=== PATIENT | female | born 1955 | race Caucasian/White ===

== ENCOUNTER 2018-07-25 13:33 | Inpatient (IN) ==
[2018-07-25] MEDS ORDERED: PANTOprazole 40 MG TAB PO STA (14:12)
[2018-07-25] MEDS ORDERED: fentaNYL citrate 100 MCG/2 ML VIAL IV STA (14:12)
--- NOTE | 2018-07-25 14:33 | XRay Report ---
SINGLE VIEW CHEST CLINICAL HISTORY: Atypical chest pain. FINDINGS: An AP, portable, upright chest radiograph is compared to study dated 05/26/2015. The examina tion is degraded by portable technique and patient rotation. The heart is top normal for projection. The pulmonary vasculature is noncongested. The mediastinal contour is within normal limits. There is mild bibasilar atelectasis. The lungs and pleural spaces are otherwise clear. No pneumothorax is see n. The skeletal structures are osteopenic. The bony thorax is grossly intact. IMPRESSION: No acute cardiopulmonary abnormality. Electronically signed by: Aj Bunch M.D. 07/25/2018 2:32 PM
[2018-07-25 14:58] LABS: Basophils # (auto) 0.04 K/uL (0-0.2); Basophils % (auto) 0.4 %; Eosinophils # (auto) 0.07 K/uL (0-0.5); Eosinophils % (auto) 0.7 %; Immature Granulocytes # (auto) 0.02 K/uL (0.00-0.02); Immature Granulocytes % (auto) 0.2 %; Lymphocytes # (auto) 1.42 K/uL (1.2-3.4); Lymphocytes % (auto) 14.9 %; Mean Corpuscular Hgb Conc 33.3 g/dL (32-36); Mean Corpuscular Volume 88.8 fL (80-100); Mean Platelet Volume 10.2 fL (7.4-10.4); Monocytes % (auto) 3.1 %; Neutrophils % (auto) 80.7 %; Platelet Count 231 K/uL (130-400); RDW Coefficient of Variation 13.2 % (11.5-14.5); RDW Standard Deviation 43.4 fL (36.4-46.3); Red Blood Count 4.39 M/uL (4.2-5.4); White Blood Count 9.55 K/uL (4.8-10.8)
[2018-07-25 15:16] LABS: Albumin Level 3.7 gm/dl (3.4-5.0); BUN Creatinine Ratio 36.3 (10-20); Blood Urea Nitrogen 20 mg/dl (7-18); Calcium 9.1 mg/dl (8.5-10.1); Carbon Dioxide 26 mmol/L (21-32); Chloride 108 mmol/L (98-107); Creatinine Clr Calc Pharmacy 116.5 ml/min; Est GFR (African American) 114.2; Est GFR (Non-African American) 98.5; Glucose 108 mg/dl (70-99); Magnesium 1.9 mg/dl (1.8-2.4); Potassium 4.2 mmol/L (3.5-5.1); Sodium 137 mmol/L (136-145)
[2018-07-25 15:22] LABS: Appearance Urine Clear (Clear); Bilirubin Urine Negative (Negative); Blood Urine Negative (Negative); Color Urine Yellow; Glucose Urine UA Negative (Negative); Ketones Urine Negative (Negative); Leukocyte Esterase Urine Negative (Negative); Nitrite Urine Negative (Negative); Protein Urine Negative (Negative); Specific Gravity Urine 1.024 (1.000-1.030); Urobilinogen Urine Negative (Negative)
[2018-07-25 15:46] LABS: Alanine Aminotransferase 23 U/L (12-78); Alkaline Phosphatase 84 U/L (45-117); Aspartate Aminotransferase 18 U/L (15-37); Bilirubin,Total 0.5 mg/dl (0.2-1); Globulin 3.8 gm/dl (2.5-4.0); Total Protein 7.5 gm/dl (6.4-8.2); Troponin I < 0.015 ng/ml (0-0.045)
--- NOTE | 2018-07-25 16:35 | Ultrasound Report ---
ULTRASOUND RIGHT UPPER QUADRANT ABDOMEN CLINICAL HISTORY: Epigastric abdominal pain. COMPARISON STUDY: No priors. TECHNIQUE: Real-time, grayscale, and color flow sonography of the right upper quadrant of the abdomen was performed. Images are reviewed in the transverse and longitudinal planes. FINDINGS: Liver: The liver is normal in size and echotexture. There is no intrahepatic biliary ductal dilatatio n. The main portal vein is patent. Gallbladder: There is minimal biliary sludge. The gallbladder is otherwise normal in appearance. No s hadowing gallstones are identified. There is no gallbladder wall thickening or pericholecystic fluid. A sonographic Wahl's sign is reportedly absent. The common bile duct measures up to 0.4 cm in diam eter. Pancreas: Visualized portions of the pancreatic head and body are normal in appearance. The splenic v ein is patent. Right kidney: Survey images of the right kidney demonstrate normal size and echotexture. There is no hydronephrosis. Ascites: None. IMPRESSION: 1. No acute sonographic abnormality is identified in the right upper quadrant. 2. No shadowing gallstones are identified. Minimal biliary sludge is noted. Electronically signed by: Aj Bnuch M.D. 07/25/2018 4:34 PM
[2018-07-25] MEDS ORDERED: SODIUM CHLORIDE 0.9% 1000ML 1,000 ML IV ONE (16:46)
[2018-07-25 17:26] LABS: Chol HDL Ratio 3; Cholesterol 183 mg/dl (0-200); HDL Cholesterol 69 mg/dl; LDL Cholesterol Calculated 101 mg/dl; Triglycerides 63 mg/dl (0-150); VLDL Cholesterol 13 mg/dl
[2018-07-25] MEDS ORDERED: POLYETHYLENE (MIRALAX) 17 GM PACK PO PRN (17:34)
[2018-07-25] MEDS ORDERED: ONDANSETRON INJ 2 MG/ML 2 ML VIAL IV PRN (17:34)
[2018-07-25] MEDS ORDERED: ACETAMINOPHEN 325 MG TAB PO PRN (17:34)
--- NOTE | 2018-07-25 17:47 | History & Physical Report ---
Date of Service July 25, 2018 Assessment & Plan (1) Pancreatitis: Pres[place] [address] -Unclear etiology. No hx of alcoholism, LFTs- normal, US- No gall stones, minimal biliary sludge -CT scan abd/pelvis was ordered by ER physician -Triglycerides - pending -NPO -IV Fluids- LR at 200 cc/hour -Pain mx- IV Morphine PRN -Work up- CT scan abd/pelvis- Follow up Present on Admission?: Yes (2) Hypertension: Stable -Continue with lisinopril 5 mg, Metoprolol 25 mg PO BID -Monitor Present on Admission?: Yes (3) GERD (gastroesophageal reflux disease): -Pepcid as protonix back ordered Present on Admission?: Yes (4) DVT prophylaxis: -SCDS/TEDS -Mobilization protocol Present on Admission?: Yes History of Present Illness Chief Complaint: Epigastric pain since today AM Primary Care Provider: Hugh Thibodeaux MD Patient is a 63-year-old female with past medical history of hypertension, GERD, comes to ED with complaint of epigastric pain since today morning. Patient's last hospitalization was in 2015 for chest pain. Since then she has not been hospitalized. Patient was at her baseline level of functioning until today morning when she had sudden onset epigastric pain radiating all across the upper part of her a bdomen, severity 7-8, dull aching. No aggravating factors. Relieved after Fentanyl 50 mcg IV, IV NS in ED. No associated nausea, vomiting, diarrhea, constipation, fever, chills. No history of alcohol abuse. Prior history of pancreatitis 20 years ago with unknown etiology. In ED, currently her pain level is 3/10. Afebrile. Vitals stable. Labs show a lipase 43,000, no other significant abnormality, triglyceridesnormal, ultrasound shows no gallstones, minimal biliary sludge, LFTsnormal. CT scan abdomen has been ordered by ED physician, Pending results. We will admit the patient for acute pancreatitis for further management. Allergies Allergy/AdvReac Type Severity Reaction Status Date / Time naproxen AdvReac Intermediate POSSIBLE Verified 07/25/18 15:00 PANCREATITIS Home Medications Home Medications Medication Instructions Recorded Confirmed Type calcium carbonate 500 - 1,000 mg PO DAILY PRN 07/25/18 07/25/18 History cholecalciferol (vitamin D3) 2,000 unit PO HS 07/25/18 07/25/18 History [Vitamin D3] lisinopril 5 mg PO HS 07/25/18 07/25/18 History metoprolol tartrate 50 mg PO BID 07/25/18 07/25/18 History ranitidine HCl 75 mg PO DAILY PRN 07/25/18 07/25/18 History Past Med/Surg History Medical History Pancreatitis (Acute) Hypertension (Chronic) GERD (gastroesophageal reflux disease) (Chronic) Family History Other Family history non-contributory Social History marital status: Current Living Situation: Spouse current occupational status: employed Feels Safe at Home: Yes Smoking Status: Never smoker Review of Systems All systems reviewed & are unremarkable except as noted in HPI & below Physical Exam Vital Signs (Past 24 Hours): Last Vital Signs Temp 36.9 C 07/25/18 13:35 Pulse 60 07/25/18 17:00 Resp 16 07/25/18 17:00 BP 143/78 H 07/25/18 17:00 Pulse Ox 98 07/25/18 17:00 Physical Exam: GENERAL- AAOX3, No acute distress HEAD- Atraumatic, Normocephalic EYES- No pallor, icterus, redness, discharge. Pupils are equal, round, reactive to light and accomodation. EARS- Normal pinna, no discharge, tenderness noted NOSE- No nasal discharge noted NECK- Supple, no JVD LUNGS- Air entry bilaterally equal. No rales, rhonchi, crackles, wheezes heard. HEART- Regular rate and rhythm. No murmurs ABDOMEN- Soft, Epigastric tenderness, non distended, Bowel sounds heard. EXTREMITIES- Good peripheral pulses, no edema NEUROMUSCULAR- AAOX3, Grossly no focal deficits SKIN- No rashes Results & Data Laboratory Results Short CBC 07/25/18 Range/Units 14:45 WBC 9.55 (4.8-10.8) K/uL Hgb 13.0 (12.0-16.0) g/dL Hct 39.0 (37-47) % Plt Count 231 (130-400) K/uL BMP 07/25/18 14:45 Sodium 137 Potassium 4.2 Chloride 108 H Carbon Dioxide 26 BUN 20 H Creatinine 0.56 L Glucose 108 H Calcium 9.1 Cardiac Enzymes 07/25/18 Range/Units 14:45 Troponin I < 0.015 (0-0.045) ng/ml Liver Function 07/25/18 Range/Units 14:45 Total Bilirubin 0.5 (0.2-1) mg/dl AST 18 (15-37) U/L ALT 23 (12-78) U/L Alkaline Phosphatase 84 (45-117) U/L Albumin 3.7 (3.4-5.0) gm/dl Urine 07/25/18 Range/Units 14:45 Urine Color Yellow Urine Appearance Clear (Clear) Urine pH 5.0 (4.5-7.5) Ur Specific Stover 1.024 (1.000-1.030) Urine Protein Negative (Negative) Urine Glucose (UA) Negative (Negative) Code Status & VTE Plan Code Status FULL CODE VTE Prophylaxis Plan VTE Prophylaxis will be ordered: Yes (1) Pancreatitis Acute pancreatitis complication: no infection or necrosis Chronicity: acute Pancreatitis type: unspecified pancreatitis type Qualified Code(s): K85.90 - Acute pancreatitis without necrosis or infection, unspecified
[2018-07-25] MEDS ORDERED: MoRPHine SULFATE 2 MG/ML CARP IV PRN (18:07)
[2018-07-25] MEDS ORDERED: IOVERSOL 100ml IV PRN (18:41)
--- NOTE | 2018-07-25 19:08 | CT Scan Report ---
CT SCAN OF THE ABDOMEN AND PELVIS WITH IV CONTRAST CLINICAL HISTORY: Epigastric abdominal pain. Clinical concern for pancreatitis. COMPARISON STUDY: Abdominal ultrasound dated 07/25/2018. TECHNIQUE: Following the IV administration of 93 cc of Optiray 320, CT scan of the abdomen and pelvi s is performed from the lung bases to the proximal femora. Images are reviewed in the axial, sagittal , and coronal planes. IV contrast was administered without complication. A dose lowering technique wa s utilized adhering to the principles of ALARA. CT DOSE: 600.63 mGy.cm FINDINGS: Lung bases: The heart is normal in size and without pericardial effusion. The lung bases are clear no ting dependent atelectasis. Liver: The contrast-enhanced liver is normal in size, contour, and attenuation. There is no intrahepa tic biliary ductal dilatation. The hepatic veins and portal veins are patent. Gallbladder: Unremarkable. Spleen: Normal in size and attenuation. Pancreas: There is peripancreatic stranding and trace fluid. The appearance is consistent with acute pancreatitis. No organized peripancreatic fluid collection is identified. The splenic vein is patent. The gland enhances homogeneously, and the duct is normal in caliber. Adrenal glands: Unremarkable. Kidneys: The contrast enhanced kidneys are normal in size and without hydronephrosis. The kidneys enh ance symmetrically. There is duplication of the left renal collecting system. Abdominal vasculature: The abdominal aorta is normal in course and caliber. Bowel: There are scattered colonic diverticula without CT evidence of acute diverticulitis. Colonic f ecal retention is noted. No bowel obstruction is seen. The appendix is not identified. Peritoneum: There is no intraperitoneal free air or abdominal ascites. There is a small fat-containin g umbilical hernia. Lymphadenopathy: None. Pelvic viscera: The bladder, uterus, and adnexa are normal as visualized. Skeletal structures: The skeletal structures are osteopenic. Mild lumbosacral spondylosis is observed . There are minimal superior endplate compression deformities of T9 and T11. No lytic or blastic lesi ons are seen. IMPRESSION: 1. Findings are consistent with acute pancreatitis. 2. No peripancreatic fluid collection is identified and the pancreas enhances homogeneously. 3. Additional findings as above. Electronically signed by: Aj Bunch M.D. 07/25/2018 7:07 PM
[2018-07-25] MEDS: LACTATED RINGER'S 1,000 ML IV SCH (19:36)
--- NOTE | 2018-07-25 20:41 | Emergency Department Note ---
Entered by Vigrinie Harding acting as a scribe for History of Present Illness General Chief complaint: Abdominal Pain Stated complaint: UPPER ABDOMINAL/RIB PAIN Time Seen by Provider: 07/25/18 14:00 Source: patient History of Present Illness Onset (ago): day(s) (this morning) Location: abdomen Pain Consistency: + constant Maximum Pain Intensity: 7 Quality: + other (pressure, burning, squeezing) Relieved By: not by medication (Tums, Zantac) Associated symptoms: + denies other symptoms (urinary changes, bowel changes, bl oating, abdominal distension, bitter taste in mouth); no fever/chills The patient is a 63 year old female who presents to the Emergency Room with complaints of upper abdominal pain that started this morning upon waking. The patient reports that she has pain under her rib cage that radiates to her back and that she feels like she has gas from her rib cage down. She notes that she has a history of acid reflux so she took some Tums and Zantac but noticed no relief. She reports feeling slightly nauseous this morning but that it has since resolved with her medications. She describes the sensation as a burning, squeezing pressure around her abdomen. She denies any changes to her health recently and notes no changes to her diet, activity level, or medication re giment. She denies any associated urinary changes, fever, chills, bowel changes, bloating, abdominal distension, or a bitter taste in her mouth. She notes that she has a history of pancreatitis 18 years ago and is worried that she was having similar symptoms. She reports that she is unaware of what caused the pancreatitis. She notes that she visited her provider in [place] and was told to visit the Emergency Room to rule out cardiac issues. She denies any sick contacts. She notes that her father had stents placed when he was 62 years old. She states that she still has her gall bladder. Home Medications Home Medications Medication Instructions Recorded Confirmed Type calcium carbonate 500 - 1,000 mg PO DAILY PRN 07/25/18 07/25/18 History cholecalciferol (vitamin D3) 2,000 unit PO HS 07/25/18 07/25/18 History [Vitamin D3] lisinopril 5 mg PO HS 07/25/18 07/25/18 History metoprolol tartrate 50 mg PO BID 07/25/18 07/25/18 History ranitidine HCl 75 mg PO DAILY PRN 07/25/18 07/25/18 History Allergies Allergy/AdvReac Type Severity Reaction Status Date / Time naproxen AdvReac Intermediate POSSIBLE Verified 07/25/18 15:00 PANCREATITIS Past Med/Surg History Medical History Pancreatitis (Acute) Hypertension (Chronic) GERD (gastroesophageal reflux disease) (Chronic) Family History Other Family history non-contributory Social History Preferred Language: [place]ian Communication Ability: Effective Entry Level Administrative Assistant Required: No Beliefs That Will Affect Care: None marital status: Current Living Situation: Spouse current occupational status: employed Other Information That Helps Us Care for You: No Feels Safe at Home: Yes Safety Concerns: Feels Safe At This Time Smoking Status: Never smoker Hx Alcohol Use: No Hx Substance Use: No Review of Systems See HPI for pertinent positives & negatives. and A total of 10 systems reviewed and were otherwise negative Physical Exam Vital Signs Vital Signs - 24 hr 07/25/18 13:35 07/25/18 14:57 07/25/18 15:45 Temperature 36.9 C Temperature Source Oral Sepsis Recent Fever Within 48 Hours No Sepsis New/Unexplained Change in Mental Status No Sepsis Action Taken by Nursing No Action Required Pulse Rate 66 Pulse Rate [Left] 62 60 Pulse Rhythm [Left] Pulse Strength [Left] Respiratory Rate 20 18 18 Respiratory Effort / Characteristics Non-Labored Non-Labored Respiratory Depth Normal Normal Respiratory Pattern Blood Pressure 159/84 H Blood Pressure [Left Arm] 164/84 H 174/68 H Blood Pressure Mean 109 Blood Pressure Mean [Left Arm] 110 103 Blood Pressure Position [Left Arm] Pulse Oximetry 98 97 99 Oxygen Delivery Method Room Air Room Air Room Air 07/25/18 17:00 07/25/18 18:18 Temperature Temperature Source Sepsis Recent Fever Within 48 Hours Sepsis New/Unexplained Change in Mental Status Sepsis Action Taken by Nursing Pulse Rate Pulse Rate [Left] 60 61 Pulse Rhythm [Left] Regular Regular Pulse Strength [Left] Normal Normal Respiratory Rate 16 18 Respiratory Effort / Characteristics Non-Labored Spontaneous Non-Labored Spontaneous Respiratory Depth Normal Normal Respiratory Pattern Regular Regular Blood Pressure Blood Pressure [Left Arm] 143/78 H 134/70 Blood Pressure Mean Blood Pressure Mean [Left Arm] 99 91 Blood Pressure Position [Left Arm] Lying Sitting Pulse Oximetry 98 97 Oxygen Delivery Method Room Air Room Air GENERAL: alert, well appearing, well nourished, no distress, non-toxic EYE EXAM: normal conjunctiva, PERRL and EOM's grossly intact OROPHARYNX: no exudate, no erythema, lips, buccal mucosa, and tongue normal and mucous membranes are moist NECK: supple, no nuchal rigidity, no adenopathy, non-tender LUNGS: Clear to auscultation. Normal chest wall mechanics, no w/r/r HEART: no murmurs, S1 normal and S2 normal ABDOMEN: abdomen soft, normo-active bowel sounds, no masses, no rebound or guarding, epigastric tenderness to palpation BACK: Back is symmetrical on inspection and there is no deformity, no midline tenderness, no CVA tenderness. SKIN: no rashes and no bruising UPPER EXTREMITIES: upper extremities are grossly normal. FROM, nml pulses b/l. LOWER EXTREMITIES: No pitting edema. FROM, nml pulses b/l. NEURO EXAM: Normal sensorium, normal speech, no gross weakness of arms, no gross weakness of legs. Course 1400: The patient was evaluated in room A10, and a complete history and physical examination were performed. 1646: I updated the patient on her current lab and imaging results. The patient's epigastric pain has improved. I ordered a repeat troponin test. 1656: I discussed the patient's case with HARJINDER Brewer, who will evaluate the patient for further management and care. 1700: I discussed tonight's findings with the patient. She verbalized agreement of the treatment plan. She will be evaluated for further management and care. Consultations Consultation #1: I discussed the patient's case with HRAJINDER Brewer, who will evaluate the patient for further management and care under Dr. Vergara. Time: 16:56 Administered Medications Lactated Ringer's (Lr) 1,000 mls @ 200 mls/hr IV .Q5H BERNARDINO Stop: 08/24/18 18:09 Last Admin: 07/25/18 19:36 Dose: 200 mls/hr Documented by: [id number] Ioversol (Optiray 320 100ml) 93 ml IV ONCE PRN PRN Reason: Interaction Checking Stop: 07/29/18 18:40 Last Admin: 07/25/18 18:41 Dose: 93 ml Documented by: [id number] Discontinued Medications Fentanyl Citrate (Fentanyl Citrate) 50 mcg IV NOW STA Stop: 07/25/18 14:13 Last Admin: 07/25/18 15:39 Dose: 50 mcg Documented by: [id number] Sodium Chloride (Nss 1000ml) 1,000 mls @ 999 mls/hr IV .Q1H1M ONE Stop: 07/25/18 17:46 Last Admin: 07/25/18 17:08 Dose: 999 mls/hr Documented by: [id number] Pantoprazole Sodium (Protonix) 40 mg PO NOW STA Stop: 07/25/18 14:13 Last Admin: 07/25/18 15:39 Dose: 40 mg Documented by: [id number] Medical Decision Making Differential Diagnosis Differential diagnoses includes but is not limited to gastritis, peptic ulcer disease, GERD, gallbladder disease, pancreatitis, small bowel obstruction, acute coronary syndrome, pericarditis, ischemic bowel, irritable bowel disease, irritable bowel syndrome, appendicitis, diverticulitis, malignancy, hernia, urinary tract infection, torsion, [/ectopic (if female)], perforation, trauma, infectious. Medical Records Attestation: I reviewed the patient's medical records. Home Medications Current Medication List: was personally reviewed by me Laboratory Data Attestation: I reviewed the patient's lab results. Result diagrams: 07/25/18 14:45 07/25/18 14:45 Lab Results 07/25/18 07/25/18 07/25/18 Range/Units 14:45 14:45 14:45 WBC 9.55 (4.8-10.8) K/uL RBC 4.39 (4.2-5.4) M/uL Hgb 13.0 (12.0-16.0) g/dL Hct 39.0 (37-47) % MCV 88.8 (80-100) fL MCH 29.6 (25-34) pg MCHC 33.3 (32-36) g/dL RDW Std Deviation 43.4 (36.4-46.3) fL RDW Coeff of Ryan 13.2 (11.5-14.5) % Plt Count 231 (130-400) K/uL MPV 10.2 (7.4-10.4) fL Immature Gran % (Auto) 0.2 % Neut % (Auto) 80.7 % Lymph % (Auto) 14.9 % Hunt % (Auto) 3.1 % Eos % (Auto) 0.7 % Baso % (Auto) 0.4 % Immature Gran # (Auto) 0.02 (0.00-0.02) K/uL Neut # (Auto) 7.70 H (1.4-6.5) K/uL Lymph # (Auto) 1.42 (1.2-3.4) K/uL Hunt # (Auto) 0.30 (0.11-0.59) K/uL Eos # (Auto) 0.07 (0-0.5) K/uL Baso # (Auto) 0.04 (0-0.2) K/uL Sodium 137 (136-145) mmol/L Potassium 4.2 (3.5-5.1) mmol/L Chloride 108 H (98-107) mmol/L Carbon Dioxide 26 (21-32) mmol/L Anion Gap 3.0 (3-11) BUN 20 H (7-18) mg/dl Creatinine 0.56 L (0.6-1.2) mg/dl Est Cr Clr Drug Dosing 116.5 ml/min Est GFR ( Amer) 114.2 Est GFR (Non-Af Amer) 98.5 BUN/Creatinine Ratio 36.3 H (10-20) Glucose 108 H (70-99) mg/dl Calcium 9.1 (8.5-10.1) mg/dl Magnesium 1.9 (1.8-2.4) mg/dl Total Bilirubin 0.5 (0.2-1) mg/dl AST 18 (15-37) U/L ALT 23 (12-78) U/L Alkaline Phosphatase 84 (45-117) U/L Troponin I < 0.015 (0-0.045) ng/ml Total Protein 7.5 (6.4-8.2) gm/dl Albumin 3.7 (3.4-5.0) gm/dl Globulin 3.8 (2.5-4.0) gm/dl Albumin/Globulin Ratio 1.0 (0.9-2) Triglycerides (0-150) mg/dl Cholesterol (0-200) mg/dl LDL Cholesterol, Calc mg/dl VLDL Cholesterol, Calc mg/dl HDL Cholesterol mg/dl Cholesterol/HDL Ratio Lipase 15929 H (73-393) U/L TSH 0.798 (0.300-4.500) uIu/ml Urine Color Yellow Urine Appearance Clear (Clear) Urine pH 5.0 (4.5-7.5) Ur Specific [place] 1.024 (1.000-1.030) Urine Protein Negative (Negative) Urine Glucose (UA) Negative (Negative) Urine Ketones Negative (Negative) Urine Blood Negative (Negative) Urine Nitrite Negative (Negative) Urine Bilirubin Negative (Negative) Urine Urobilinogen Negative (Negative) Ur Leukocyte Esterase Negative (Negative) 07/25/18 Range/Units 14:45 WBC (4.8-10.8) K/uL RBC (4.2-5.4) M/uL Hgb (12.0-16.0) g/dL Hct (37-47) % MCV (80-100) fL MCH (25-34) pg MCHC (32-36) g/dL RDW Std Deviation (36.4-46.3) fL RDW Coeff of Ryan (11.5-14.5) % Plt Count (130-400) K/uL MPV (7.4-10.4) fL Immature Gran % (Auto) % Neut % (Auto) % Lymph % (Auto) % Hunt % (Auto) % Eos % (Auto) % Baso % (Auto) % Immature Gran # (Auto) (0.00-0.02) K/uL Neut # (Auto) (1.4-6.5) K/uL Lymph # (Auto) (1.2-3.4) K/uL Hunt # (Auto) (0.11-0.59) K/uL Eos # (Auto) (0-0.5) K/uL Baso # (Auto) (0-0.2) K/uL Sodium (136-145) mmol/L Potassium (3.5-5.1) mmol/L Chloride (98-107) mmol/L Carbon Dioxide (21-32) mmol/L Anion Gap (3-11) BUN (7-18) mg/dl Creatinine (0.6-1.2) mg/dl Est Cr Clr Drug Dosing ml/min Est GFR ( Amer) Est GFR (Non-Af Amer) BUN/Creatinine Ratio (10-20) Glucose (70-99) mg/dl Calcium (8.5-10.1) mg/dl Magnesium (1.8-2.4) mg/dl Total Bilirubin (0.2-1) mg/dl AST (15-37) U/L ALT (12-78) U/L Alkaline Phosphatase (45-117) U/L Troponin I (0-0.045) ng/ml Total Protein (6.4-8.2) gm/dl Albumin (3.4-5.0) gm/dl Globulin (2.5-4.0) gm/dl Albumin/Globulin Ratio (0.9-2) Triglycerides 63 (0-150) mg/dl Cholesterol 183 (0-200) mg/dl LDL Cholesterol, Calc 101 mg/dl VLDL Cholesterol, Calc 13 mg/dl HDL Cholesterol 69 mg/dl Cholesterol/HDL Ratio 3 Lipase (73-393) U/L TSH (0.300-4.500) uIu/ml Urine Color Urine Appearance (Clear) Urine pH (4.5-7.5) Ur Specific [place] (1.000-1.030) Urine Protein (Negative) Urine Glucose (UA) (Negative) Urine Ketones (Negative) Urine Blood (Negative) Urine Nitrite (Negative) Urine Bilirubin (Negative) Urine Urobilinogen (Negative) Ur Leukocyte Esterase (Negative) Imaging Data Radiologist's Impression: Radiology results as stated below per my review and the radiologist's interpretation: SINGLE VIEW CHEST CLINICAL HISTORY: Atypical chest pain. FINDINGS: An AP, portable, upright chest radiograph is compared to study dated 05/26/2015. The examination is degraded by portable technique and patient rotation. The heart is top normal for projection. The pulmonary vasculature is noncongested. The mediastinal contour is within normal limits. There is mild bibasilar atelectasis. The lungs and pleural spaces are otherwise clear. No pneumothorax is seen. The skeletal structures are osteopenic. The bony thorax is grossly intact. IMPRESSION: No acute cardiopulmonary abnormality. Electronically signed by: Aj Bunch M.D. 07/25/2018 2:32 PM ULTRASOUND RIGHT UPPER QUADRANT ABDOMEN CLINICAL HISTORY: Epigastric abdominal pain. COMPARISON STUDY: No priors. TECHNIQUE: Real-time, grayscale, and color flow sonography of the right upper quadrant of the abdomen was performed. Images are reviewed in the transverse and longitudinal planes. FINDINGS: Liver: The liver is normal in size and echotexture. There is no intrahepatic biliary ductal dilatation. The main portal vein is patent. Gallbladder: There is minimal biliary sludge. The gallbladder is otherwise normal in appearance. No shadowing gallstones are identified. There is no gallbladder wall thickening or pericholecystic fluid. A sonographic Wahl's sign is reportedly absent. The common bile duct measures up to 0.4 cm in diameter. Pancreas: Visualized portions of the pancreatic head and body are normal in appearance. The splenic vein is patent. Right kidney: Survey images of the right kidney demonstrate normal size and echotexture. There is no hydronephrosis. Ascites: None. IMPRESSION: 1. No acute sonographic abnormality is identified in the right upper quadrant. 2. No shadowing gallstones are identified. Minimal biliary sludge is noted. Electronically signed by: Aj Bunch M.D. 07/25/2018 4:[address] SCAN OF THE ABDOMEN AND PELVIS WITH IV CONTRAST CLINICAL HISTORY: Epigastric abdominal pain. Clinical concern for pancreatit is. COMPARISON STUDY: Abdominal ultrasound dated 07/25/2018. TECHNIQUE: Following the IV administration of 93 cc of Optiray 320, CT scan of the abdomen and pelvis is performed from the lung bases to the proximal femora. Images are reviewed in the axial, sagittal, and coronal planes. IV contrast was administered without complication. A dose lowering technique was utilized adhering to the principles of ALARA. CT DOSE: 600.63 mGy.cm FINDINGS: Lung bases: The heart is normal in size and without pericardial effusion. The lung bases are clear noting dependent atelectasis. Liver: The contrast-enhanced liver is normal in size, contour, and attenuation. There is no intrahepatic biliary ductal dilatation. The hepatic veins and portal veins are patent. Gallbladder: Unremarkable. Spleen: Normal in size and attenuation. Pancreas: There is peripancreatic stranding and trace fluid. The appearance is consistent with acute pancreatitis. No organized peripancreatic fluid collection is identified. The splenic vein is patent. The gland enhances homogeneously, and the duct is normal in caliber. Adrenal glands: Unremarkable. Kidneys: The contrast enhanced kidneys are normal in size and without hydronephrosis. The kidneys enhance symmetrically. There is duplication of the left renal collecting system. Abdominal vasculature: The abdominal aorta is normal in course and caliber. Bowel: There are scattered colonic diverticula without CT evidence of acute diverticulitis. Colonic fecal retention is noted. No bowel obstruction is seen. The appendix is not identified. Peritoneum: There is no intraperitoneal free air or abdominal ascites. There is a small fat-containing umbilical hernia. Lymphadenopathy: None. Pelvic viscera: The bladder, uterus, and adnexa are normal as visualized. Skeletal structures: The skeletal structures are osteopenic. Mild lumbosacral spondylosis is observed. There are minimal superior endplate compression deformities of T9 and T11. No lytic or blastic lesions are seen. IMPRESSION: 1. Findings are consistent with acute pancreatitis. 2. No peripancreatic fluid collection is identified and the pancreas enhances homogeneously. 3. Additional findings as above. Electronically signed by: Aj Bunch M.D. 07/25/2018 7:07 PM ECG Data Attestation: I personally reviewed and interpreted this ECG as follows: Indication: abdominal pain Rate (beats per minute): 61 Rhythm: sinus rhythm Findings: + other (normal axis, normal intervals); no PAC, no PVC, no ST depression, no ST elevation, no acute ischemic change and no ectopy Blood Pressure Blood Pressure Findings: Elevated blood pressure Blood Pressure Disposition: Referred to patients primary care provider MDM Narrative Patient here well-appearing despite complaints with persistent epigastric and bilateral costal margin tenderness. Initial labs resulted and were reassuring, however then noticed that the lipase was still pending. I initially discussed w ith the patient after a negative chest x-ray and negative ultrasound of the gallbladder additional monitoring repeat troponin and if that was negative to discharge patient home with close outpatient follow-up. I then received a phone call that the patient's lipase was significantly elevated which explain the delay time in the lab resulting this number. I discussed with the patient the significantly elevated lipase, as patient has had pancreatitis in the past of unknown etiology. No evidence of choledocholithiasis or ascending cholangitis. Patient hemodynamically stable throughout. Discussed with patient all results as well as need for additional imaging. CT the abdomen pelvis was ordered and confirmed pancreatitis, no evidence of mass or pseudocyst. Case discussed with hospitalist for additional evaluation and management. Patient aware of all results and was in agreement with plan. Impression & Plan Pancreatitis, Epigastric abdominal pain Discharge Plan Visit Data *Final* Discharge Date/Time: 07/25/18 18:29 Chief Complaint: Abdominal Pain Stated Complaint: UPPER ABDOMINAL/RIB PAIN ED Provider: Tiffanie Sharma Discharge Problem: Pancreatitis, Epigastric abdominal pain Patient Disposition: Admitted As Inpatient Discharge Instructions Interventions: ED Discharge Assessment Last Done: 07/25/18 18:29 The scribe's documentation has been prepared under my direction and personally reviewed by me in its entirety. I confirm that the note above accurately reflects all work, treatment, procedures, and medical decision making performed by me.
[2018-07-25] MEDS: METOPROLOL TARTRATE 50 MG TAB PO SCH (21:26)
[2018-07-25] MEDS: FAMOTIDINE 20 MG TAB PO SCH (21:26)
[2018-07-25] MEDS: LISINOPRIL 5 MG TAB PO SCH (21:26)
[2018-07-25] MEDS: CHOLECALCIFEROL 1,000 UNITS TAB PO SCH (21:27)
[2018-07-26] MEDS: LACTATED RINGER'S 1,000 ML IV SCH ×4 (00:32→17:28)
[2018-07-26 06:40] LABS: Hematocrit (blood only) 36.7 % (37-47); Hemoglobin 11.8 g/dL (12.0-16.0); Mean Corpuscular Hgb Conc 32.2 g/dL (32-36); Mean Corpuscular Volume 90.8 fL (80-100); Platelet Count 193 K/uL (130-400); RDW Coefficient of Variation 13.4 % (11.5-14.5); RDW Standard Deviation 44.9 fL (36.4-46.3); Red Blood Count 4.04 M/uL (4.2-5.4); White Blood Count 5.59 K/uL (4.8-10.8)
[2018-07-26 07:19] LABS: Albumin Level 3.1 gm/dl (3.4-5.0); BUN Creatinine Ratio 21.2 (10-20); Bilirubin,Total 0.8 mg/dl (0.2-1); Calcium 8.6 mg/dl (8.5-10.1); Creatinine Clr Calc Pharmacy 112.5 ml/min; Est GFR (African American) 112.9; Est GFR (Non-African American) 97.4; Globulin 3.2 gm/dl (2.5-4.0); Total Protein 6.3 gm/dl (6.4-8.2)
[2018-07-26] MEDS: FAMOTIDINE 20 MG TAB PO SCH ×2 (08:35→20:36)
[2018-07-26] MEDS: METOPROLOL TARTRATE 50 MG TAB PO SCH ×2 (08:35→20:36)
--- NOTE | 2018-07-26 14:22 | Hospitalist Progress Note ---
Date of Service July 26, 2018 Assessment & Plan (1) Pancreatitis: Presents with epigastric pain [place] [address], CT scan- pancreatitis with no peripancreatic fluid collection Prior hx of pancreatitis 20 years ago-unknown etiology -Unclear etiology. No hx of alcoholism, LFTs- normal, US- No gall stones, minimal biliary sludge, Triglycerides- normal. Does take Ibuprofen x 4 times /week, no new meds Clinically improved. Asymptomatic currently with no use of pain meds, Lipase is down to 7k -NPO--> Advance to clear liquid -IV Fluids- LR at 200 cc/hour--> decrease to 150 cc/hour -Pain mx- IV Morphine PRN--> Change to PO Oxycodone PRN (not using any) (2) Hypertension: Stable -Continue with lisinopril 5 mg, Metoprolol 25 mg PO BID -Monitor (3) GERD (gastroesophageal reflux disease): -Pepcid as protonix back ordered (4) DVT prophylaxis: -SCDS/TEDS -Mobilization protocol Disposition Medical mx in progress Expected discharge home when stable Updated family by bedside Subjective Patient is feeling better. Denies any epigastric pain, has completely resolved. Has not required any pain medications. No nausea, vomiting, fever, chills. No diarrhea, constipation. Asking for food Physical Exam Vital Signs (Past 24 Hours): Last Vital Signs Temp 36.7 C 07/26/18 07:34 Pulse 58 L 07/26/18 07:34 Resp 18 07/26/18 07:34 BP 158/63 H 07/26/18 07:34 Pulse Ox 100 07/26/18 07:34 Constitutional: WD/WN, vitals as above Respiratory: normal respiratory effort, lungs clear to auscultation Cardiovascular: RRR, no murmur, no edema Gastrointestinal (Abdomen): normal bowel sounds, soft, nontender, no hepatosplenomegaly (1) Pancreatitis Chronicity: acute Pancreatitis type: unspecified pancreatitis type Acute pancreatitis complication: no infection or necrosis Qualified Code(s): K85.90 - Acute pancreatitis without necrosis or infection, unspecified
[2018-07-26] MEDS: CHOLECALCIFEROL 1,000 UNITS TAB PO SCH (20:33)
[2018-07-26] MEDS: LISINOPRIL 5 MG TAB PO SCH (20:36)
[2018-07-27] MEDS: LACTATED RINGER'S 1,000 ML IV SCH ×3 (00:02→13:07)
[2018-07-27 07:12] LABS: Hematocrit (blood only) 36.5 % (37-47); Hemoglobin 11.9 g/dL (12.0-16.0); Mean Corpuscular Hgb Conc 32.6 g/dL (32-36); Mean Corpuscular Volume 90.6 fL (80-100); Mean Platelet Volume 10.4 fL (7.4-10.4); Platelet Count 201 K/uL (130-400); RDW Coefficient of Variation 13.2 % (11.5-14.5); RDW Standard Deviation 43.6 fL (36.4-46.3); Red Blood Count 4.03 M/uL (4.2-5.4); White Blood Count 6.82 K/uL (4.8-10.8)
[2018-07-27 07:32] LABS: Albumin Level 3.3 gm/dl (3.4-5.0); Calcium 8.9 mg/dl (8.5-10.1); Creatinine Clr Calc Pharmacy 112.5 ml/min; Est GFR (African American) 112.9; Est GFR (Non-African American) 97.4
[2018-07-27 07:35] LABS: Bilirubin,Total 0.9 mg/dl (0.2-1); Globulin 3.3 gm/dl (2.5-4.0); Total Protein 6.6 gm/dl (6.4-8.2)
[2018-07-27] MEDS: METOPROLOL TARTRATE 50 MG TAB PO SCH (09:23)
[2018-07-27] MEDS: FAMOTIDINE 20 MG TAB PO SCH (09:23)
--- NOTE | 2018-07-27 13:29 | Hospitalist Progress Note ---
Date of Service July 27, 2018 Assessment & Plan (1) Pancreatitis: Presented with epigastric pain with no [place] [address], CT scan- pancreatitis with no peripancreatic fluid collection Prior hx of pancreatitis 20 years ago-unknown etiology -Unclear etiology-possibly biliary sludge. No hx of alcoholism, LFTs- normal, US- No gall stones, minimal biliary sludge, Triglycerides- normal. Does take Ibuprofen x 4 times /week, no new meds Asymptomatic since yesterday, Tolerating advanced diet well. Lipase is down to 500s today -Received aggressive IV hydration with ringers lactate -Pain mx- Not using any since yesterday Discussed with GI informally about etiology due to highly elevated lipase with no clear etiology. Minimal biliary sludge can do this, recommended MRCP and if it is normal EUS outpatient. Patient refused MRCP due to claustrophobia in spite of me explaining her and offering Ativan. Not interested in EUS currently till her insurance coverage gets better. If has another episode, would strongly recommend further evaluation with above tests. (2) Hypertension: Stable -Continue with lisinopril 5 mg, Metoprolol 25 mg PO BID (3) GERD (gastroesophageal reflux disease): -Pepcid as protonix back ordered (4) DVT prophylaxis: -SCDS/TEDS -Mobilization protocol Disposition Eager to be discharged Ok to discharge home today Updated family by bedside Subjective Patient is feeling better. Denies any epigastric pain, has completely resolved since yesterday. Has not required any pain medications. No nausea, vomiting, fever, chills. No diarrhea, constipation. Tolerating advanced diet, regular food well Physical Exam Vital Signs (Past 24 Hours): Last Vital Signs Temp 36.9 C 07/27/18 07:18 Pulse 60 07/27/18 07:18 Resp 18 07/27/18 07:18 BP 154/74 H 07/27/18 07:18 Pulse Ox 97 07/27/18 07:18 Constitutional: WD/WN, vitals as above Respiratory: normal respiratory effort, lungs clear to auscultation Cardiovascular: RRR, no murmur, no edema Gastrointestinal (Abdomen): normal bowel sounds, soft, nontender, no hepatosplenomegaly (1) Pancreatitis Acute pancreatitis complication: no infection or necrosis Chronicity: acute Pancreatitis type: unspecified pancreatitis type Qualified Code(s): K85.90 - Acute pancreatitis without necrosis or infection, unspecified
--- NOTE | 2018-07-27 13:37 | Discharge Summary ---
Date of Service July 27, 2018 Admission HPI Per Admitting Provider Patient is a 63-year-old female with past medical history of hypertension, GERD, comes to ED with complaint of epigastric pain since today morning. Patient's last hospitalization was in 2016 for chest pain. Since then she has not been hospitalized. Patient was at her baseline level of functioning until today morning when she had sudden onset epigastric pain radiating all across the upper part of her abdomen, severity 7-8, dull aching. No aggravating factors. Relieved after Fentanyl 50 mcg IV, IV NS in ED. No associated nausea, vomiting, diarrhea, constipation, fever, chills. No history of alcohol abuse. Prior history of pancreatitis 20 years ago with unknown etiology. In ED, currently her pain level is 3/10. Afebrile. Vitals stable. Labs show a lipase 43,000, no other significant abnormality, triglyceridesnormal, ultrasound shows no gallstones, minimal biliary sludge, LFTsnormal. CT scan abdomen has been ordered by ED physician, Pending results. We will admit the patient for acute pancreatitis for further management. Principal Diagnosis ACUTE PANCREATITIS, Unclear etiology, possibly secondary to biliary sludge SECONDARY DIAGNOSIS ON DISCHARGE 1, Hypertension 2 GERD Discharge Exam Constitutional WD/WN, vitals as above Respiratory normal respiratory effort, lungs clear to auscultation Cardiovascular RRR, no murmur, no edema Gastrointestinal (Abdomen) normal bowel sounds, soft, nontender, no hepatosplenomegaly Discharge Data Allergies Allergy/AdvReac Type Severity Reaction Status Date / Time naproxen AdvReac Intermediate POSSIBLE Verified 07/25/18 15:00 PANCREATITIS Consultations 07/25/18 16:58 ED Decision to Admit Stat Ordered Studies 07/25/18 14:12 US gallbladder Stat 07/25/18 16:58 CT abd pelvis IV con only Stat Hospital Course (1) Pancreatitis: Presented with epigastric pain [place], [place] [address], CT scan- pancreatitis with no peripancreatic fluid collection Prior hx of pancreatitis 20 years ago-unknown etiology -Unclear etiology-possibly biliary sludge. No hx of alcoholism, LFTs- normal, US- No gall stones, minimal biliary sludge, Triglycerides- normal. Does take I buprofen x 4 times /week, no new meds Asymptomatic since yesterday, Tolerating advanced diet well. Lipase is down to 500s today -Received aggressive IV hydration with ringers lactate -Pain mx- Not using any since yesterday Discussed with GI informally about etiology due to highly elevated lipase with no clear etiology. Minimal biliary sludge can do this, recommended MRCP and if it is normal EUS outpatient. Patient refused MRCP due to claustrophobia in spite of me explaining her and offering Ativan. Not interested in EUS currently till her insurance coverage gets better. If has another episode, would strongly recommend further evaluation with above tests. (2) Hypertension: Stable -Continue with lisinopril 5 mg, Metoprolol 25 mg PO BID (3) GERD (gastroesophageal reflux disease): -Pepcid as protonix back ordered (4) DVT prophylaxis: -SCDS/TEDS -Mobilization protocol Disposition Eager to be discharged Ok to discharge home today Updated family by bedside Total Time Total Time Spent Total Time Spent (In Minutes): 38 minutes Discharge Plan Discharge Items Reason For Visit: ACUTE PANCREATITIS Discharge Diagnosis: Acute pancreatitis Discharge Goals: Diagnostic testing and Learn about illness Activity: Resume your previous activity Non-emergency contact: Primary Care Provider Call non-emergency contact if: your symptoms worsen and your pain is unusual for you Follow-up/Referrals: Hugh Thibodeaux MD [Primary Care Provider] - 08/04/18 2:05 pm Diet: Low Fat and Low Sodium (2gm) Addtl Provider Instructions: You were diagnosed with acute pancreatitis, possibly secondary to biliary sludge No changes in medications Recommend: Outpatient Lipase testing . Today your level was 508 Prescriptions: Continued ranitidine HCl 75 mg Tablet 75 mg PO DAILY PRN (Reason: Gi Upset) RF: 0 metoprolol tartrate 50 mg tablet 50 mg PO BID RF: 0 calcium carbonate 500 mg calcium (1,250 mg) Tablet,Chewable 500 - 1,000 mg PO DAILY PRN (Reason: Indigestion) RF: 0 lisinopril 5 mg tablet 5 mg PO HS RF: 0 cholecalciferol (vitamin D3) [Vitamin D3] 2,000 unit Tablet 2,000 unit PO HS RF: 0 Stand-Alone Forms: Call Back Authorization, [facility] Admission Data Admit Date/Time: 07/25/18 17:34 Attending Provider: Iona Vergara Admit Provider: Iona Vergara Primary Care Provider: Hugh Thibodeaux Other Providers: Shruthi Vergara Service: Medical
== END 2018-07-27 15:45 | disposition home or self-care (01) | DRG 440 ==
LOC: ED 13:33 → 4W 17:34